=== PATIENT | female | born 1995 | race Caucasian/White ===

== ENCOUNTER 2018-05-29 15:06 | Emergency (ER) | payer BC ==
--- NOTE | 2018-05-29 17:09 | ED ---
Skin Complaint - HPI Summary HPI Summary: 23-year-old female presents with a potential allergic reaction today. States she's been taking anything niacin as she is trying to clear [facility] for a drug test. She is requesting a drug test currently. She states she has been taking it for the past couple days 1000mg with food and she developed body wide flushing today. No fevers. No chest pain or shortness breath. No difficulty swallowing. She never had this reaction before. Denies any history of allergic reactions. She hasn't taking anything for her symptoms. She has no medical conditions. - History of Current Complaint Chief Complaint: EDAllergicReaction Time Seen by Provider: 05/29/18 16:34 Stated Complaint: POSS ALLERGIC REACTION Pain Intensity: 3 - Allergy/Home Medications Allergies/Adverse Reactions: Allergies Allergy/AdvReac Type Severity Reaction Status Date / Time No Known Allergies Allergy Verified 11/02/14 11:26 PMH/Surg Hx/FS Hx/Imm Hx Endocrine/Hematology History: Denies: Hx Diabetes Cardiovascular History: Denies: Hx Hypertension Psychiatric History: Reports: Hx Anxiety, Hx Depression, Hx Inpatient Treatment , Hx Community Mental Health Tx Denies: Hx Attention Deficit Hyperactivity Disorder, Hx Eating Disorder, Hx Panic Disorder, Hx Post Traumatic Stress Disorder, Hx Schizophrenia, Hx Bipolar Disorder, Hx Suicide Attempt, Hx of Violent Episodes Against Others, Hx Substance Abuse, Other Psychiatric Issues/Disorders - Immunization History Date of Tetanus Vaccine: Up to date Date of Influenza Vaccine: Up to date Infectious Disease History: No Infectious Disease History: Denies: Traveled Outside the [place] in Last 30 Days - Social History Alcohol Use: None Substance Use Type: Reports: None Smoking Status (MU): Never Smoked Tobacco Review of Systems Negative: Fever Negative: Chest Pain Negative: Shortness Of Breath Positive: Rash All Other Systems Reviewed And Are Negative: Yes Physical Exam Triage Information Reviewed: Yes Vital Signs On Initial Exam: Initial Vitals Temp Pulse Resp BP Pulse Ox 97.5 F 74 18 137/77 99 05/29/18 15:08 05/29/18 15:08 05/29/18 15:08 05/29/18 15:08 05/29/18 15:08 Vital Signs Reviewed: Yes Appearance: Positive: Well-Appearing Skin: Positive: Warm, Dry, Other - diffuse flushing across body Head/Face: Positive: Normal Head/Face Inspection Eyes: Positive: Normal, Conjunctiva Clear ENT: Positive: Pharynx normal Respiratory/Lung Sounds: Positive: Clear to Auscultation, Breath Sounds Present Cardiovascular: Positive: Normal, RRR Musculoskeletal: Positive: Normal Neurological: Positive: Normal Psychiatric: Positive: Normal Diagnostics - Vital Signs Vital Signs Temp Pulse Resp BP Pulse Ox 05/29/18 15:08 97.5 F 74 18 137/77 99 - Laboratory Lab Statement: Any lab studies that have been ordered have been reviewed, and results considered in the medical decision making process. Course/Dx - Course Course Of Treatment: 23-year-old female presents with a potential allergic reaction today. States she's been taking anything niacin as she is trying to clear [facility] for a drug test. She is requesting a drug test currently. She states she has been taking it for the past couple days 1000mg with food and she developed body wide flushing today. No fevers. No chest pain or shortness breath. No difficulty swallowing. She never had this reaction before. Denies any history of allergic reactions. She hasn't taking anything for her symptoms. She has no medical conditions. on exam has body wide flush. lungs CTA. gave dose of aspirin. drug screen normal. told to stop niacin and take aspirin. patient understand and agrees with plan. - Differential Diagnoses - Skin Complaint Differential Diagnoses: Cellulitis, Contact Dermatitis, Other - niacin - Diagnoses Provider Diagnoses: Adverse reaction to niacin Discharge - Sign-Out/Discharge Documenting (check all that apply): Patient Departure - Discharge Plan Condition: Good Disposition: HOME Referrals: Priscilla Malik MD [Primary Care Provider] - Additional Instructions: take aspirin daily take ibuprofen every 6 hours for redness stop niacin Return to ED if develop any new or worsening symptoms - Billing Disposition and Condition Condition: GOOD Disposition: Home
[2018-05-29] MEDS ORDERED: Aspirin EC TAB* 325 MG PO ONE (17:19)
[2018-05-29 19:22] VITALS: BP 110/62
== END 2018-05-29 18:50 | disposition home or self-care (01) ==
LOC: ED 15:06
DX: R23.2 Flushing (principal); T46.7X5A Adverse effect of peripheral vasodilators, initial encounter; Y92.9 Unspecified place or not applicable
CPT/HCPCS: 36415; 80307; 99282; A9270-GY

== ENCOUNTER 2018-10-12 12:17 | Emergency (ER) | payer BC ==
[2018-10-12 12:45] VITALS: BP 113/59
--- NOTE | 2018-10-12 13:17 | UC ---
Respiratory Complaint HPI - HPI Summary HPI Summary: 2 days of sinus congestion, occasional nonproductive cough. friend is sick contacts. flu shot: did not get. - History of Current Complaint Chief Complaint: UCGeneralIllness Stated Complaint: SINUS CONGESTION, COUGH, HEADACHE Time Seen by Provider: 10/12/18 13:00 Hx Obtained From: Patient Hx Last Menstrual Period: 10/01/18 Onset/Duration: Sudden Onset - 2 days ago Pain Intensity: 0 Pain Scale Used: 0-10 Numeric Character: Cough: Nonproductive Aggravating Factors: Recumbent Position Alleviating Factors: Nothing - has also not tried anything. Associated Signs And Symptoms: Negative: Fever - Allergies/Home Medications Allergies/Adverse Reactions: Allergies Allergy/AdvReac Type Severity Reaction Status Date / Time No Known Allergies Allergy Verified 10/12/18 12:45 Home Medications: Home Medications NK [No Home Medications Reported] 10/12/18 [History Confirmed 10/12/18] PMH/Surg Hx/FS Hx/Imm Hx Previously Healthy: Yes - Surgical History Surgical History: None - Social History Alcohol Use: None Substance Use Type: None Smoking Status (MU): Never Smoked Tobacco - Immunization History Most Recent Influenza Vaccination: 2012 Most Recent Pneumonia Vaccination: never Review of Systems All Other Systems Reviewed And Are Negative: Yes Constitutional: Positive: Negative. Negative: Fever Skin: Positive: Negative Eyes: Negative: Drainage ENT: Positive: Sinus Congestion, Sinus Pain/Tenderness. Negative: Sore Throat, Ear Ache, Nasal Discharge Respiratory: Positive: Cough - occasional. Negative: Shortness Of Breath Cardiovascular: Positive: Negative Gastrointestinal: Negative: Vomiting, Diarrhea, Nausea Musculoskeletal: Negative: Arthralgia, Myalgia Neurological: Negative: Headache Physical Exam Triage Information Reviewed: Yes Appearance: Well-Appearing Vital Signs: Initial Vital Signs Temp 98.5 F 10/12/18 12:43 Pulse 88 10/12/18 12:43 Resp 18 10/12/18 12:43 BP 113/59 10/12/18 12:43 Pulse Ox 96 10/12/18 12:43 Vital Signs Reviewed: Yes Eyes: Positive: Conjunctiva Clear ENT: Positive: Pharynx normal, TMs normal, Uvula midline. Negative: Sinus tenderness Neck exam: Normal Respiratory Exam: Normal Cardiovascular Exam: Normal Neurological: Positive: Alert Skin: Negative: Rashes UC Diagnostic Evaluation - Laboratory O2 Sat by Pulse Oximetry: 96 Respiratory Course/Dx - Course Course Of Treatment: acute sinusitis in a usually healthy pt. non smoker. vitals good, pt stable. viral in etiology. comfort measures for symptoms. - Differential Dx/Diagnosis Differential Diagnosis/HQI/PQRI: Airway Obstruction, Asthma, Bronchitis, Sinusitis Provider Diagnosis: Acute sinusitis Discharge - Sign-Out/Discharge Documenting (check all that apply): Patient Departure All imaging exams completed and their final reports reviewed: No Studies - Discharge Plan Condition: Good Disposition: HOME Patient Education Materials: Sinusitis (ED) Forms: *Work Release Referrals: Priscilla Malik MD [Primary Care Provider] - Additional Instructions: follow up with pcp if not improving. - Billing Disposition and Condition Condition: GOOD Disposition: Home
== END 2018-10-12 13:22 | disposition home or self-care (01) ==
LOC: UCCORT 12:17
DX: J01.90 Acute sinusitis, unspecified (principal)
CPT/HCPCS: 99211; G0463

== ENCOUNTER 2019-03-31 21:10 | Emergency (ER) | payer BC ==
--- NOTE | 2019-03-31 21:19 | UC ---
Throat Pain/Nasal Francois HPI - HPI Summary HPI Summary: 2 days of sinus pain and congestion---Is not really adherent with nasal spray or allergy medicine no fever or ear pain - History of Current Complaint Chief Complaint: UCRespiratory Stated Complaint: SINUS CONGESTION Time Seen by Provider: 03/31/19 21:15 Hx Obtained From: Patient Hx Last Menstrual Period: 10/01/18 ?: No Onset/Duration: Sudden Onset, Lasting Days - 2, Still Present Severity: Moderate Cough: None Associated Signs & Symptoms: Positive: Sinus Discomfort Related History: Seasonal Allergies - Allergies/Home Medications Allergies/Adverse Reactions: Allergies Allergy/AdvReac Type Severity Reaction Status Date / Time No Known Allergies Allergy Verified 03/31/19 21:20 Home Medications: Home Medications Ibuprofen TAB* [Motrin TAB* 400 MG] 400 mg PO Q6H PRN 03/31/19 [History Confirmed 03/31/19] Mometasone NASAL (NF) [Nasonex (NF)] 1 spray .SEE ORDER ONCE 03/31/19 [History Confirmed 03/31/19] PMH/Surg Hx/FS Hx/Imm Hx Previously Healthy: No Psychological History: Depression - Surgical History Surgical History: None - Family History Known Family History: Positive: None - Social History Occupation: Employed Full-time Lives: Alone Alcohol Use: None Substance Use Type: None Smoking Status (MU): Never Smoked Tobacco - Immunization History Most Recent Influenza Vaccination: 2012 Most Recent Pneumonia Vaccination: never Review of Systems All Other Systems Reviewed And Are Negative: Yes Constitutional: Positive: Negative Skin: Positive: Negative Eyes: Positive: Negative ENT: Positive: Sinus Congestion Respiratory: Positive: Negative Cardiovascular: Positive: Negative Gastrointestinal: Positive: Negative Genitourinary: Positive: Negative Motor: Positive: Negative Neurovascular: Positive: Negative Musculoskeletal: Positive: Negative Neurological: Positive: Negative Psychological: Positive: Negative Is Patient Immunocompromised?: No Physical Exam Triage Information Reviewed: Yes Appearance: Well-Appearing, No Pain Distress, Well-Nourished Vital Signs Reviewed: Yes Eye Exam: Normal Eyes: Positive: Conjunctiva Clear ENT Exam: Normal ENT: Positive: Normal ENT inspection, Hearing grossly normal, Pharynx normal, Nasal congestion, TMs normal, Sinus tenderness, Uvula midline, Other - nasal mucosa swollen. Negative: Trismus, Muffled voice, Hoarse voice, Dental tenderness Neck exam: Normal Neck: Positive: Supple, Nontender Respiratory Exam: Normal Respiratory: Positive: Chest non-tender, Lungs clear, Normal breath sounds, No respiratory distress, No accessory muscle use Cardiovascular Exam: Normal Cardiovascular: Positive: RRR, No Murmur, Pulses Normal, Brisk Capillary Refill Musculoskeletal Exam: Normal Musculoskeletal: Positive: Strength Intact, ROM Intact, No Edema Neurological Exam: Normal Neurological: Positive: Alert, Muscle Tone Normal Psychological Exam: Normal Skin Exam: Normal Throat Pain/Nasal Course/Dx - Course Course Of Treatment: Nasonex or flonase, prn mucinex and allergy med follow with pcp prn - Differential Dx/Diagnosis Provider Diagnosis: Allergic rhinitis Discharge - Sign-Out/Discharge Documenting (check all that apply): Patient Departure All imaging exams completed and their final reports reviewed: No Studies - Discharge Plan Condition: Stable Disposition: HOME Prescriptions: Fluticasone NASAL SPRAY 50MCG* [Flonase NASAL SPRAY 50MCG*] 2 spray BOTH NARES DAILY #1 btl Patient Education Materials: Rhinosinusitis (ED) Forms: *Work Release Referrals: Priscilla Malik MD [Primary Care Provider] - If Needed Additional Instructions: You can use flonase OR nasonex but not both!! - Billing Disposition and Condition Condition: STABLE Disposition: Home
[2019-03-31 21:20] VITALS: BP 112/73
== END 2019-03-31 21:46 | disposition home or self-care (01) ==
LOC: UCEAST 21:10
DX: J30.9 Allergic rhinitis, unspecified (principal); F32.9 Major depressive disorder, single episode, unspecified
CPT/HCPCS: 99212; G0463

== ENCOUNTER 2019-05-26 14:23 | Emergency (ER) | payer BC ==
[2019-05-26 14:36] VITALS: BP 127/72
--- NOTE | 2019-05-26 14:59 | UC ---
UC General HPI - HPI Summary HPI Summary: Patient presents to urgent care stating that last evening when he coughed she developed nausea vomiting diarrhea. Patient states he vomited through the night. Patient states is no blood or black in her emesis. There is no blood in her stool. Patient states she had abdominal cramping that was improved with diarrhea. Patient states the last time she had a diarrhea is 11:00 and she is feeling better. 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 Patient states she was scheduled to work at 70 and this morning he did not so she is here requesting a note. Patient denies fevers or chills. No back pain. No dysuria or hematuria. No current abdominal pain. Patient states she had little water that she kept down at noon. Patient states she starting to feel hungry. Patient without any other complaints. Medications reviewed this visit. - History of Current Complaint Chief Complaint: UCGI Stated Complaint: VOMITING DIARRHEA Time Seen by Provider: 05/26/19 14:52 Hx Obtained From: Patient Hx Last Menstrual Period: February 26 - has liletta IUD, so period is irregular Pain Intensity: 0 - Allergy/Home Medications Allergies/Adverse Reactions: Allergies Allergy/AdvReac Type Severity Reaction Status Date / Time environmental Allergy Congestion Uncoded 05/26/19 14:36 fruit Allergy See Comment Uncoded 05/26/19 14:36 Home Medications: Home Medications Levonorgestrel (Iud) [Liletta IUD] 18.6 mcg IU 05/26/19 [History] PMH/Surg Hx/FS Hx/Imm Hx Previously Healthy: Yes - Surgical History Surgical History: None - Family History Known Family History: Positive: Non-Contributory - Social History Occupation: Employed Full-time Lives: With Family Alcohol Use: Occasionally Substance Use Type: Marijuana Substance Use Comment - Amount & Last Used: socially Smoking Status (MU): Never Smoked Tobacco - Immunization History Most Recent Influenza Vaccination: 2012 Most Recent Pneumonia Vaccination: never Review of Systems All Other Systems Reviewed And Are Negative: Yes Physical Exam - Summary Physical Exam Summary: Vital Signs Reviewed: Yes A+Ox3, no distress Eyes: Conjunctiva Clear, SAM. EOM intact and full ENT: Hearing grossly normal TM x 2 clear, mpasty uvula midline, no exudate, no erythema Neck: Positive: Supple Respiratory: Positive: No respiratory distress, No accessory muscle use + CTA throughout no w/r Cardiovascular: RRR nl s1, s2 no m/r CBT <2 sec abd soft + BS nt/nd no guarding, no distension, cva Musculoskeletal Exam: CASTILLO x 4 without difficulty Strength Intact, ROM Intact Neurological: Positive: Alert, + sensation throughout Psychological: Positive: Normal Response To examiner Skin: Positive: no rash, no ecchymosis Vital Signs: Initial Vital Signs Temp 98.4 F 05/26/19 14:32 Pulse 76 05/26/19 14:32 Resp 14 05/26/19 14:32 BP 127/72 05/26/19 14:32 Pulse Ox 97 05/26/19 14:32 Course/Dx - Course Course Of Treatment: Patient presents to urgent care stating she would like an L4. Patient states she developed nausea vomiting diarrhea that occurred starting last night and lasted approximately 18 hours. Patient states he will she works with have had similar symptoms 3 patient does relate she is feeling better was starting an appetite. Patient has been able tolerate water. Patient states right now she has no pain no nausea or vomiting. Patient states she has made urine twice this morning. On exam vital signs are stable. Nothing focal. Offered patient Zofran which he declined. Discussed with patient bland diet and advancing from clears. Skin clear rests. Avoid alcohol. Patient states understanding agreement. Patient written a note for work today. - Diagnoses Provider Diagnosis: Nausea & vomiting Discharge ED - Sign-Out/Discharge Documenting (check all that apply): Patient Departure All imaging exams completed and their final reports reviewed: No Studies - Discharge Plan Condition: Stable Disposition: HOME Patient Education Materials: Acute Nausea and Vomiting (ED), Acute Diarrhea (ED ) Forms: *Work Release Referrals: Priscilla Malik MD [Primary Care Provider] - Additional Instructions: - For the first 6 hours, eat and drink clears (water, carlos elvia, soup broth, jello, popsicles, Gatorade). If you tolerate this okay, add bland foods such as dry toast, scrambled eggs, crackers. Wait until you are feeling better for 24 hours before eating spicy food, acidic food, tomato based food, fried food. - These infections are spread by oral secretions. Do not share eating or drinking utensils. Frequent hand washing is important. Clean items that may get your secretions on them such as cell phones, ipads, computer mouse, television remotes. Once you have been on antbiotics for 2 days, change your pillowcase and your toothbrush - get plenty of restful sleep - Contact your doctor or return with questions or concerns - Billing Disposition and Condition Condition: STABLE Disposition: Home
== END 2019-05-26 15:07 | disposition home or self-care (01) ==
LOC: UCEAST 14:23
DX: R11.2 Nausea with vomiting, unspecified (principal); R19.7 Diarrhea, unspecified
CPT/HCPCS: 99211; G0463

== ENCOUNTER 2023-06-06 17:45 | Inpatient (IN) ==
[2023-06-06 19:16] LABS: Urine Appearance Cloudy; Urine Bilirubin Negative (Negative); Urine Blood Negative (Negative); Urine Color Yellow; Urine Glucose Negative (Negative); Urine Ketones 1+ (Negative); Urine Nitrite Negative (Negative); Urine Protein Negative (Negative); Urine Specific Gravity 1.024 (1.002-1.030); Urine Urobilinogen Negative (Negative)
[2023-06-06 19:34] LABS: Urine Benzodiazepine Screen None Detected (None Detect); Urine Cannabinoids Screen Presumptive Positive (None Detect); Urine Opiates Screen None Detected (None Detect)
[2023-06-06] MEDS ORDERED: Al Hydrox/Mg Hydrox/Simet LIQ 30 ML UDC PO PRN (20:38)
[2023-06-07 08:17] LABS: ABS Basophils 0.1 10^3/uL (0.0-0.1); ABS Eosinophils 0.2 10^3/uL (0.0-0.5); ABS Lymphocytes 1.9 10^3/uL (1.0-4.8); ABS Monocytes 0.8 10^3/uL (0.0-0.9); ABS Neutrophils 6.3 10^3/uL (1.5-7.6); ABS Nucleated RBC 0.01 10^3/ul; Hematocrit 40.1 % (35-45); Hemoglobin 13.7 g/dL (11.5-14.3); Lymphocyte % 20.8 %; Mean Corpuscular Hemoglobin 30.3 pg (27-33); Mean Corpuscular Hgb Conc 34.1 g/dL (31-36); Mean Corpuscular Volume 88.8 fL (80-97); Mean Platelet Volume 7.8 fL (7.5-11.2); Nucleated Red Blood Cells % 0.1 /100 WBC (0.0-0.4); Platelet Count 317 10^3/uL (150-450); Red Blood Count 4.52 10^6/uL (3.63-4.92); Red Cell Distribution Width 13.1 % (12-17); White Blood Count 9.3 10^3/uL (3.8-11.8)
[2023-06-07 08:41] LABS: HDL Cholesterol 45.5 mg/dL
[2023-06-07 08:46] LABS: HCG Pregnancy < 0.60 mIU/mL
[2023-06-07 08:49] LABS: ALT 9 U/L (7-52); AST 10 U/L (13-39); Albumin 4.3 g/dL (3.2-5.2); Albumin/Globulin Ratio 1.8 (1-3); Alkaline Phosphatase 44 U/L (35-149); Anion Gap 9 mmol/L (2-16); Blood Urea Nitrogen 21 mg/dL (6-24); CO2 Carbon Dioxide 23 mmol/L (22-32); Chloride 107 mmol/L (101-111); Creatinine, Serum 0.97 mg/dL (0.51-0.95); Globulin 2.4 g/dL (2-4); Glucose 105 mg/dL (70-100); Sodium 139 mmol/L (135-145); Total Protein 6.7 g/dL (6.4-8.9); eGFR CKD-EPI 82.6 (>60)
[2023-06-07 08:51] LABS: TSH Ultra Thyroid Stim Horm 1.44 mcIU/mL (0.34-5.60)
[2023-06-07] MEDS: Vitamin THERAPEUTIC TAB PO SCH (10:40)
[2023-06-07] MEDS ORDERED: Nicotine GUM 2MG FRUIT FLAVOR PO PRN (14:30)
[2023-06-07] MEDS: Nicotine PATCH 14 MG/24 HR PATCH TRANSDERM SCH (15:03)
[2023-06-08] MEDS: Vitamin THERAPEUTIC TAB PO SCH (08:54)
[2023-06-08] MEDS: Amphetamine/Dextroam ER 10(NF) 10 mg CAP.ER PO SCH (08:54)
[2023-06-08] MEDS: Nicotine PATCH 14 MG/24 HR PATCH TRANSDERM SCH ×2 (10:38→12:16)
[2023-06-09] MEDS: Vitamin THERAPEUTIC TAB PO SCH (08:14)
[2023-06-09] MEDS: Nicotine PATCH 14 MG/24 HR PATCH TRANSDERM SCH (08:14)
[2023-06-09] MEDS: Amphetamine/Dextroam ER 10(NF) 10 mg CAP.ER PO SCH (08:15)
[2023-06-09 10:22] VITALS: BP 98/78
== END 2023-06-09 13:45 | disposition home or self-care (01) | DRG 751 ==
LOC: ED 17:45 → BSU 19:57 → EDHOLD 19:57 → BSU 21:05
PROVIDERS: ADMIT Psychiatry & Neurology Psychiatry; ATTEND Psychiatry & Neurology Psychiatry